=== PATIENT | female | born 1985 | race Two or more races ===

== ENCOUNTER → 2024-08-17 | Outpatient (CLI) | payer MEDICAID, SELFPAY ==
--- NOTE | 2024-08-17 14:15 | XR_ITS ---
Examination: MRI lumbar spine without contrast Date and time of exam: August 17, 2024 1513 hrs. Indications: Lower back pain, chronic worse over the last 3 months Technique: Multiple MRI axial and sagittal sections lumbar spine. Sagittal T2-weighted images, TR 3500, TE 118 T1 weighted transverse sections, TR 688 T8.5, T2-weighted sagittal sections T1 weighted sagittal sections TR 621, TE 30 T2 axial sections, TR 4, 190, TE 84. Findings: Adequate alignment lumbar vertebral bodies on the lateral view Disc desiccation lower 2 lumbar levels Adequate marrow signal lumbar vertebral bodies No spondylolisthesis No significant lumbar disc narrowing L5-S1 2 mm central lumbar disc bulge L4-L5 2 mm central lumbar disc bulge L3-L4 no disc protrusion L2-L3 no disc protrusion L1-L2 no disc protrusion Impression: No lumbar fracture No significant acquired spinal stenosis
== END | disposition home or self-care (01) ==
LOC: SMRI 13:55
PROVIDERS: PCP Specialist; Referring Provider Specialist; Visit Provider Specialist
DX: M99.79 Connective tissue and disc stenosis of intervertebral foramina of abdomen and other regions (principal)
CPT/HCPCS: 72148

== ENCOUNTER → 2025-01-25 | Outpatient (CLI) | payer MEDICAID, SELFPAY ==
--- NOTE | 2025-01-25 09:28 | XR_ITS ---
Examination: Cervical spine 3 views Technique one AP lateral coned AP odontoid cervical spine 3 views Date and time: January 25, 2025 0937 hours INDICATIONS: Neck pain beginning 2 months ago. FINDINGS: Reversal normal cervical lordosis. No cervical fracture. Intact odontoid. No significant cervical disc narrowing IMPRESSION: No significant cervical disc narrowing
--- NOTE | 2025-01-25 09:28 | XR_ITS ---
Examination: Thoracic spine 3 views Technique one AP lateral coned lateral upper dorsal spine 3 views Date and time: January 25, 2025 0942 hours INDICATIONS: Upper back pain beginning 2 months ago. FINDINGS: Moderate osteopenia Thoracic levoscoliosis 10 degrees No thoracic fracture Mild thoracic spondylosis Minimal thoracic disc narrowing IMPRESSION: Minimal thoracic degenerative disc disease
== END | disposition home or self-care (01) ==
LOC: CDIM 09:20
PROVIDERS: PCP Nurse Practitioner Family; Referring Provider Nurse Practitioner Family; Visit Provider Nurse Practitioner Family
DX: M54.2 Cervicalgia (principal); M51.34 Other intervertebral disc degeneration, thoracic region
CPT/HCPCS: 72040; 72070

== ENCOUNTER → 2025-03-04 | Outpatient (CLI) | payer MEDICAID, SELFPAY ==
--- NOTE | 2025-03-04 10:00 | XR_ITS ---
Examination: Screening digital mammography, bilateral Computer aided detection 3-D breast Tomosynthesis, bilateral Date and time of exam: March 04, 2025 0951 hours Compared to mammograms dating to September 17, 2023 Indication: Screening Technique: Nonmagnified MLO, CC views of the breasts to been obtained, reconstructed from 3-D Tomosynthesis images. R2 computer aided detection program utilized for evaluation of suspicious masses and/or abnormal calcifications. 3-D Tomosynthesis images obtained. Findings: The breasts are heterogeneously dense, which may obscure small masses Breast biopsy markers outer right breast Retroareolar nodule with breast biopsy marker, 18 mm Microcalcifications upper outer right breast separate from the breast biopsy marker Impression: BI-RADS Category 0: Incomplete: Need additional imaging evaluation Recommend follow-up magnification spot compression films of microcalcifications upper outer right breast as well as bilateral breast sonography to complete the workup
== END | disposition home or self-care (01) ==
LOC: CDIM 09:40
PROVIDERS: Referring Provider Nurse Practitioner Family; Visit Provider Nurse Practitioner Family
DX: Z12.31 Encounter for screening mammogram for malignant neoplasm of breast (principal); R92.0 Mammographic microcalcification found on diagnostic imaging of breast
CPT/HCPCS: 77063; 77067

== ENCOUNTER → 2025-03-14 | Outpatient (CLI) | payer MEDICAID, SELFPAY ==
--- NOTE | 2025-03-14 10:00 | XR_ITS ---
Examination: Abdomen sonogram, Limited Date and time of exam: March 14, 2025 1007 hours INDICATIONS: Onset right upper abdominal pain beginning one year ago Technique: Real-time marcus scale transabdominal sonographic images of the upper abdomen obtained. Findings: Normal gallbladder. Normal common bile duct 0.4 cm Pancreatic head 1.4 cm Liver 16.1 cm no focal liver lesions Normal hepatopedal portal venous flow Patent IVC IMPRESSION: Normal gallbladder No focal liver lesions
== END | disposition home or self-care (01) ==
PROVIDERS: PCP Nurse Practitioner Family; Referring Provider Nurse Practitioner Family; Visit Provider Nurse Practitioner Family
DX: K76.0 Fatty (change of) liver, not elsewhere classified (principal)
CPT/HCPCS: 76705

== ENCOUNTER → 2025-03-16 | Outpatient (CLI) | payer MEDICAID, SELFPAY ==
--- NOTE | 2025-03-16 14:15 | XR_ITS ---
Examination: MRI pelvis, without contrast Date and time of exam: March 16, 2025 1500 hours INDICATIONS: Back pain beginning one year ago, diagnoses neoplasm pelvic bone Technique: Multiple axial sagittal and coronal images of the pelvis have been obtained with the Siemens high-resolution 1.5 Opal MRI scanner. Images obtained include T2-weighted fat-suppressed sagittal sections, TR 3500, TE 46, T2 weighted coronal fat suppressed images, TR 3050, TE 84, T2-weighted transverse fat suppressed images, TR 3260, TE 63, proton density transverse images, TR 4720 TE 46, and T1 weighted coronal images, TR 560, TE 13. Findings: Homogeneous marrow signal sacral lower lumbar segments Iliac bones acetabular regions anterior rami and hips intact Retroverted uterus with no discrete uterine or adnexal mass Mild narrowing hip joints IMPRESSION: No soft tissue pelvic mass No bone marrow edema occult fracture or osseous lesion depicted AP plain film of the pelvis would be helpful
== END | disposition home or self-care (01) ==
PROVIDERS: PCP Physician Assistant; Referring Provider Orthopaedic Surgery; Visit Provider Orthopaedic Surgery
DX: D16.8 Benign neoplasm of pelvic bones, sacrum and coccyx (principal)
CPT/HCPCS: 72195

== ENCOUNTER → 2025-04-22 | Outpatient (CLI) | payer MEDICAID, SELFPAY ==
--- NOTE | 2025-04-22 08:15 | XR_ITS ---
Examination: MRI brain without intravenous contrast. Date and time of exam: April 22, 2025 0828 hours INDICATIONS: Headaches numbness and tingling in the head 6 months Technique: Multiple axial and sagittal images of the brain obtained. Siemens high-resolution 1.5 Opal short bore scanners utilized. Sagittal sections, T1-weighted, TR 500, TE 14, are performed. Axial sections proton-density and T2-weighted have been obtained. Inversion recovery axial images, TR 9, 260, TE 111, TI 2500. Diffusion weighted images, axial sections, TR 4800, TE 128, B value 1000 Axial sections, ADC map, TR 4800, TE 128 Findings: Enlargement of the sella turcica is not present. The optic chiasm and infundibular are not remarkable. Prepontine and interpeduncular cisterns are not enlarged. There is no localized enlargement of the medulla or layne. Fourth ventricle and cerebellar tonsils appear normal in position. No subacute area of hemorrhage density is seen. Mass in the cerebellopontine angle region is not evident. Globes symmetrical. Orbital musculature including medial lateral rectus muscles do not exhibit abnormality. Diffusion-weighted images demonstrate no focus of restricted diffusion. Increased white matter signal not seen Mass effect upon the ventricular system is not identified. Impression: Negative for acute hemorrhage mass effect or midline shift No acute infarct No MR findings diagnostic for demyelinating disease
== END | disposition home or self-care (01) ==
PROVIDERS: PCP Nurse Practitioner Family; Referring Provider Nurse Practitioner Family; Visit Provider Nurse Practitioner Family
DX: G52.8 Disorders of other specified cranial nerves (principal); R20.2 Paresthesia of skin
CPT/HCPCS: 70551

== ENCOUNTER → 2025-05-03 | Outpatient (CLI) | payer MEDICAID, SELFPAY ==
--- NOTE | 2025-05-03 07:00 | XR_ITS ---
Examination: MRI cervical spine without intravenous contrast Date and time of exam: May 03, 2025 0727 hours INDICATIONS: Neck pain one year Technique: Multiple axial and sagittal sections of the cervical spine to been obtained. T2 weighted sagittal sections, TR 3, 270, TE 117 T1-weighted sagittal sections, TR 500, TE 11 T1-weighted axial sections, TR 607, TE 12, axial sections TR 18, TE 27 and T2 weighted transverse sections, TR 3920, TE 122. Findings: Satisfactory alignment cervical vertebral bodies. No cervical fracture. Intact odontoid. Diffuse cervical disc indication. Mild disc narrowing C5-C6 C5-C6 2 mm left paracentral disc bulge, moderate left neural foraminal stenosis No localized enlargement cervical cord IMPRESSION: C5-C6 2 mm left paracentral disc bulge, moderate left neural foraminal stenosis
== END | disposition home or self-care (01) ==
LOC: SMRI 07:02
PROVIDERS: Referring Provider Nurse Practitioner Family; Visit Provider Nurse Practitioner Family
DX: M50.322 Other cervical disc degeneration at C5-C6 level (principal); M48.02 Spinal stenosis, cervical region
CPT/HCPCS: 72141

== ENCOUNTER → 2025-05-09 | Outpatient (CLI) | payer MEDICAID, SELFPAY ==
--- NOTE | 2025-05-09 10:00 | XR_ITS ---
Examination: Abdomen sonogram, Limited Date and time of exam: May 09, 2025 1030 hours INDICATIONS: Abdominal pain beginning 4 months ago Technique: Real-time marcus scale transabdominal sonographic images of the upper abdomen obtained. Findings: Normal gallbladder. Normal common bile duct 0.4 cm Pancreatic head 1.8 cm Liver 15.7 cm fatty infiltration smooth contour no focal liver lesions Normal hepatopedal portal venous flow Patent IVC IMPRESSION: Normal gallbladder. Normal common bile duct
--- NOTE | 2025-05-09 10:30 | XR_ITS ---
Examination: Breast ultrasound complete, bilateral Date and time of exam: May 09, 2025 1040 hours INDICATIONS: Right breast discomfort one year, right breast biopsy 0.9 2024, microcalcifications upper outer right breast separate from the breast biopsy marker on mammogram March 04, 2025 Technique: Real-time grayscale ultrasonographic imaging bilateral breasts, including all 4 quadrants as well as nipple retroareolar and axillary regions. Findings: Sonographic images right breast 9:00 cyst 7 x 5 mm 9:00 hyperechoic nodule with breast biopsy marker 11 x 9 mm 10:00 nodule circumscribed 20 x 18 mm with breast biopsy marker Sonographic images left breast 10:00 cyst 5 x 5 mm IMPRESSION: BI-RADS Category 3: Probably benign findings One additional 6 month right breast sonogram follow-up strongly advised to document stability of solid nodules right breast described above
== END | disposition home or self-care (01) ==
LOC: CDIM 10:17
PROVIDERS: PCP Physician Assistant; Referring Provider Nurse Practitioner Family; Visit Provider Nurse Practitioner Family
DX: N63.15 Unspecified lump in the right breast, overlapping quadrants (principal); N63.11 Unspecified lump in the right breast, upper outer quadrant; K76.0 Fatty (change of) liver, not elsewhere classified
CPT/HCPCS: 76641; 76705